=== PATIENT | female | born 2000 | race Caucasian/White ===

== ENCOUNTER 2018-08-14 21:58 | Emergency (ER) | payer MEDICAID, OTHER ==
[2018-08-15 01:51] LABS: URINE BLOOD (Dip) POC Trace-lysed (NEGATIVE); URINE GLUCOSE (Dip) POC Negative (NEGATIVE); URINE KETONES (Dip) POC Negative (NEGATIVE); URINE LEUKOCYTE EST (Dip) POC Negative (NEGATIVE); URINE NITRITE (Dip) POC Negative (NEGATIVE); URINE TOTAL PROTEIN POC Negative (NEGATIVE)
[2018-08-15] MEDS: IBUPROFEN 600 MG TAB PO (02:25)
[2018-08-15] MEDS: CYCLOBENZAPRINE 10 MG TAB PO (02:25)
== END 2018-08-15 02:27 | disposition home or self-care (01) ==
LOC: FTE 08-15 02:27
DX: J40 Bronchitis, not specified as acute or chronic (principal); M62.838 Other muscle spasm; M79.18 Myalgia, other site
CPT/HCPCS: 81003; 81025; 99283